=== PATIENT | male | born 1985 | race American Indian/Alaskan Native ===

== ENCOUNTER 2017-01-28 06:33 | Emergency (ER) | payer OTHER ==
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
--- NOTE | 2017-01-28 08:08 | XRay Report ---
LEFT CALCANEUS, 2 VIEWS History: Pain. Findings: There is normal bone mineralization. No evidence for fracture or bone lesion. The subtalar joint is poorly imaged on this exam but is grossly normal. Small plantar spur. Normal soft tissues. Impression: Small plantar spur.
[2017-01-28 09:21] VITALS: BP 120/84
== END 2017-01-28 09:23 | disposition home or self-care (01) ==
LOC: ED 06:33
DX: M77.32 Calcaneal spur, left foot (principal); I10 Essential (primary) hypertension; M79.672 Pain in left foot
CPT/HCPCS: 99283

== ENCOUNTER 2017-10-22 04:47 | Emergency (ER) | payer SELFPAY ==
[2017-10-22 04:56] VITALS: BP 166/110
[2017-10-22] MEDS ORDERED: NORCO 5/325 ONE (05:03)
[2017-10-22] MEDS ORDERED: MOTRIN ONE (05:03)
[2017-10-22] MEDS ORDERED: ZOFRAN ODT ONE (05:03)
[2017-10-22] MEDS ORDERED: ZOFRAN ODT PO ONE (05:06)
[2017-10-22] MEDS ORDERED: NORCO 5/325 PO ONE (05:06)
[2017-10-22] MEDS ORDERED: MOTRIN PO ONE (05:06)
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
== END 2017-10-22 07:00 | disposition home or self-care (01) ==
LOC: ED 04:47
DX: T23.251A Burn of second degree of right palm, initial encounter (principal); I10 Essential (primary) hypertension; X10.2XXA Contact with fats and cooking oils, initial encounter; Y93.G3 Activity, cooking and baking; Y99.8 Other external cause status; Y92.89 Other specified places as the place of occurrence of the external cause
CPT/HCPCS: 99283; Q0162